=== PATIENT | female | born 1940 | race African-American/Black ===

== ENCOUNTER 2021-12-18 14:16 | Emergency (ER) | payer OTHER ==
[2021-12-18 14:27] VITALS: TEMP 98; BMI 33.3
[2021-12-18 16:10] VITALS: BP 121/53; PULSE 84
== END 2021-12-18 16:18 | disposition home or self-care (01) ==
LOC: JER 14:16
DX: R22.43 Localized swelling, mass and lump, lower limb, bilateral (principal)
CPT/HCPCS: 99281-25